=== PATIENT | male | born 1960 | race Caucasian/White ===

== ENCOUNTER 2019-01-25 17:58 | Observation (INO) | payer OTHER ==
[2019-01-25] MEDS ORDERED: Sodium Chloride 0.9% 1,000 ML IV ONE ×2 (18:17→19:20)
[2019-01-25] MEDS ORDERED: Ondansetron 4 MG/2 ML SDV IVPUSH ONE (18:17)
[2019-01-25] MEDS ORDERED: Morphine 2 MG/ML Syringe IVPUSH ONE (18:17)
[2019-01-25] MEDS ORDERED: Ketorolac 30 MG/ML SDV IVPUSH ONE (18:17)
[2019-01-25] MEDS ORDERED: Sodium Chloride 0.9% 10 ML Syringe FLUSH PRN (18:17)
[2019-01-25] MEDS ORDERED: Sodium Chloride 0.9% 2.5 ML Syringe FLUSH PRN (18:17)
[2019-01-25] MEDS ORDERED: Pantoprazole 40 MG Vial IVPUSH ONE (18:23)
--- NOTE | 2019-01-25 18:23 | EDM.PDOC ---
ED HPI GENERAL MEDICAL PROBLEM - General Chief Complaint: Abdominal Pain Stated Complaint: WEAKNESS Time Seen by Provider: 01/25/19 18:04 - History of Present Illness INITIAL COMMENTS - FREE TEXT/NARRATIVE: HISTORY AND PHYSICAL: History of present illness: The patient is a 50-year-old male with no significant abdominal surgical history no GI history ( please keep below addendum note for clarification and change of information that was not shared with me during the initial history of present illness) who presents with complaints of right upper quadrant pain that started yesterday and has been constant but intensified today and nausea and vomiting today which was mostly the food that he ate and bilious not black or bloody. He says he vomited about 4 times and the pain has been intensifying. He said he felt hot but did not take his temperature and he has no chest pain or shortness of breath. He has no flank pain no urinary complaints. The patient did not try any [id number] meds for the pain or the nausea and vomiting. He says that he did not have a bowel movement today but he did have one yesterday that was normal and not diarrhea black or bloody. He has no history of food intolerance no history of heartburn or acid reflux. He called the police who then called the ambulance because he was so low energy and needed transportation for care Review of systems: As per history of present illness and below otherwise all systems reviewed and negative. Past medical history: As per history of present illness and as reviewed below otherwise noncontributory. Surgical history: As per history of present illness and as reviewed below otherwise noncontributory. Social history: No reported history of drug or alcohol abuse. Family history: As per history of present illness and as reviewed below otherwise noncontributory. Physical exam: General: Well-developed well-nourished man who is nontoxic and vital signs are noted by me. He prefers to keep his eyes closed but opens his eyes and answers questions but is very soft spoken. HEENT: Atraumatic, normocephalic, pupils reactive, negative for conjunctival pallor or scleral icterus, mucous membranes moist, throat clear, neck supple, nontender, trachea midline. Lungs: Clear to auscultation, breath sounds equal bilaterally, chest nontender. Heart: S1S2, regular, negative for clicks, rubs, or JVD. No overt murmurs Abdomen: Soft, nondistended, bowel sounds are hypoactive and there is moderate tenderness on palpation in the right upper quadrant and epigastrium and right lower quadrant pain and no left-sided pain. There is no rebound or guarding. Negative for masses or hepatosplenomegaly. Negative for costovertebral tenderness. See below addendum exam Pelvis: Stable nontender. Genitourinary: Deferred. Rectal: Deferred. Extremities: Atraumatic, negative for cords or calf pain. Neurovascular unremarkable. Neuro: Awake, alert, oriented. Cranial nerves II through XII unremarkable. Cerebellum unremarkable. Motor and sensory unremarkable throughout. Exam nonfocal. Diagnostics: CBC CMP amylase lipase UA H. pylori CT scan of the abdomen and pelvis Therapeutics: IV fluids Zofran Toradol morphine Protonix Patient is feeling much improved and after receiving the CAT scan results I discussed with him again whether or not he has had any abdominal surgical history. 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 He does have a scar on his abdomen in the periumbilical area without any tenderness and his overall pain and exam is much improved. He is aware of the testing results and the need for admission and he has only received the first liter of fluids and is now on the second. He has not given me a urine sample yet. He is aware he is very dehydrated 2024: Case was discussed with Dr. Blackmon who will come and see the patient wants him to be admitted to the hospitalist. He will do a formal consult. Dr. Guzman is here in the ED currently and is aware of this case and accepts him for observation admission Impression: Small bowel obstruction Definitive disposition and diagnosis as appropriate pending reevaluation and review of above. Right Upper Abdomen Pain Score (Numeric/FACES): 8 - Related Data Allergies Allergy/AdvReac Type Severity Reaction Status Date / Time ampicillin Allergy Other Verified 01/25/19 18:03 Home Meds: Home Meds Mirtazapine 45 mg PO DAILY 01/25/19 [History] Venlafaxine [Effexor XR] 375 mg PO BEDTIME 01/25/19 [History] Past Medical History - Past Health History Medical/Surgical History: Denies Medical/Surgical History Genitourinary History: Reports: Other (See Below) Other Genitourinary History: bladder surgery Psychiatric History: Reports: Depression - Past Surgical History GI Surgical History: Reports: Other (See Below) Other GI Surgeries/Procedures: abdomen surgery at [facility] History: Reports: Arthroscopic Knee, Other (See Below) Other Musculoskeletal Surgeries/Procedures:: ankle surgery Social & Family History - Family History Family Medical History: Noncontributory - Tobacco Use Smoking Status *Q: Never Smoker - Recreational Drug Use Recreational Drug Use: No ED ROS GENERAL - Review of Systems Review Of Systems: ROS reveals no pertinent complaints other than HPI. ED EXAM, GENERAL - Physical Exam Exam: See Below (See dictation) Course - Vital Signs Last Recorded V/S: Last Vital Signs Temp 36.1 C 01/25/19 18:00 Pulse 88 01/25/19 19:13 Resp 18 01/25/19 19:13 BP 134/86 01/25/19 19:13 Pulse Ox 96 01/25/19 19:13 - Orders/Labs/Meds Orders: Active Orders 24 hr Category Date Time Status Patient Status [ADT] Stat ADT 01/25/19 20:26 Ordered Notify Provider Consults [RC] ASDIRECTED Care 01/25/19 20:27 Ordered Consult to Physician [CONS] Stat Cons 01/25/19 20:27 Ordered UA RFX LEXIS AND CULT IF INDIC [URIN] Stat Lab 01/25/19 18:17 Ordered Sodium Chloride 0.9% [Saline Flush] Med 01/25/19 18:17 Active 10 ml FLUSH ASDIRECTED PRN Sodium Chloride 0.9% [Saline Flush] Med 01/25/19 18:17 Active 2.5 ml FLUSH ASDIRECTED PRN Saline Lock Insert [OM.PC] Stat Oth 01/25/19 18:17 Ordered Medication Orders Sodium Chloride (Saline Flush) 10 ml FLUSH ASDIRECTED PRN PRN Reason: Keep Vein Open Last Admin: 01/25/19 18:35 Dose: 10 ml Sodium Chloride (Saline Flush) 2.5 ml FLUSH ASDIRECTED PRN PRN Reason: Keep Vein Open Last Admin: 01/25/19 18:35 Dose: 2.5 ml Labs: Laboratory Tests 01/25/19 01/25/19 01/25/19 Range/Units 18:37 18:37 18:37 WBC 17.16 H (4.0-11.0) K/uL RBC 5.35 (4.50-5.90) M/uL Hgb 18.0 H (13.0-17.0) g/dL Hct 51.0 H (38.0-50.0) % MCV 95.3 (80.0-98.0) fL MCH 33.6 H (27.0-32.0) pg MCHC 35.3 (31.0-37.0) g/dL RDW Std Deviation 52.4 (28.0-62.0) fl RDW Coeff of Leonid 15 (11.0-15.0) % Plt Count 220 (150-400) K/uL MPV 10.40 (7.40-12.00) fL Neut % (Auto) 90.8 H (48.0-80.0) % Lymph % (Auto) 4.5 L (16.0-40.0) % [place] % (Auto) 4.5 (0.0-15.0) % Eos % (Auto) 0.1 (0.0-7.0) % Baso % (Auto) 0.1 (0.0-1.5) % Neut # (Auto) 15.6 H (1.4-5.7) K/uL Lymph # (Auto) 0.8 (0.6-2.4) K/uL [place] # (Auto) 0.8 (0.0-0.8) K/uL Eos # (Auto) 0.0 (0.0-0.7) K/uL Baso # (Auto) 0.0 (0.0-0.1) K/uL Nucleated RBC % 0.0 /100WBC Nucleated RBCs # 0 K/uL Sodium 139 (136-148) mmol/L Potassium 4.5 (3.5-5.1) mmol/L Chloride 101 (98-107) mmol/L Carbon Dioxide 27.9 (21.0-32.0) mmol/L BUN 21 H (7.0-18.0) mg/dL Creatinine 1.0 (0.8-1.3) mg/dL Est Cr Clr Drug Dosing 85.76 mL/min Estimated GFR (MDRD) > 60.0 ml/min Glucose 151 H (74-106) mg/dL Calcium 10.0 (8.5-10.1) mg/dL Total Bilirubin 0.9 (0.2-1.0) mg/dL AST 29 (15-37) IU/L ALT 48 (14-63) IU/L Alkaline Phosphatase 75 (46-116) U/L Total Protein 8.5 H (6.4-8.2) g/dL Albumin 4.2 (3.4-5.0) g/dL Globulin 4.3 H (2.6-4.0) g/dL Albumin/Globulin Ratio 1.0 (0.9-1.6) Amylase 36 (25-115) U/L Lipase 132 (73-393) U/L H. pylori IgG Antibody NEGATIVE (NEG) Meds: Medications Generic Name Dose Route Start Last Admin Trade Name Freq PRN Reason Stop Dose Admin Sodium Chloride 10 ml 01/25/19 18:17 01/25/19 18:35 Saline Flush FLUSH 10 ml ASDIRECTED PRN Administration Keep Vein Open Sodium Chloride 2.5 ml 01/25/19 18:17 01/25/19 18:35 Saline Flush FLUSH 2.5 ml ASDIRECTED PRN Administration Keep Vein Open Discontinued Medications Generic Name Dose Route Start Last Admin Trade Name Freq PRN Reason Stop Dose Admin Sodium Chloride 1,000 mls @ 999 mls/hr 01/25/19 18:17 01/25/19 18:35 Normal Saline IV 01/25/19 19:17 999 mls/hr STAT ONE Administration Sodium Chloride 1,000 mls @ 999 mls/hr 01/25/19 19:20 Normal Saline IV 01/25/19 20:20 STAT ONE Iopamidol 100 ml 01/25/19 19:42 01/25/19 19:43 Isovue Multipack-370 (76%) IVPUSH 01/25/19 19:43 100 ml ONETIME STA Administration Ketorolac Tromethamine 30 mg 01/25/19 18:17 01/25/19 18:34 Toradol IVPUSH 01/25/19 18:18 30 mg ONETIME ONE Administration Morphine Sulfate 2 mg 01/25/19 18:17 01/25/19 18:35 Morphine IVPUSH 01/25/19 18:18 2 mg ONETIME ONE Administration Ondansetron HCl 4 mg 01/25/19 18:17 01/25/19 18:36 Zofran IVPUSH 01/25/19 18:18 4 mg ONETIME ONE Administration Pantoprazole Sodium 80 mg 01/25/19 18:23 01/25/19 18:34 Protonix Iv IVPUSH 01/25/19 18:24 80 mg .BOLUS ONE Administration Departure - Departure Time of Disposition: 20:29 Disposition: Refer to Observation Condition: Good Clinical Impression: Small bowel obstruction due to adhesions - Discharge Information Forms: ED Department Discharge - My Orders Last 24 Hours: My Active Orders 01/25/19 18:17 UA RFX LEXIS AND CULT IF INDIC [URIN] Stat Sodium Chloride 0.9% [Saline Flush] 10 ml FLUSH ASDIRECTED PRN Sodium Chloride 0.9% [Saline Flush] 2.5 ml FLUSH ASDIRECTED PRN Saline Lock Insert [OM.PC] Stat 01/25/19 20:26 Patient Status [ADT] Stat 01/25/19 20:27 Notify Provider Consults [RC] ASDIRECTED Consult to Physician [CONS] Stat - Assessment/Plan Last 24 Hours: My Active Orders 01/25/19 18:17 UA RFX LEXIS AND CULT IF INDIC [URIN] Stat Sodium Chloride 0.9% [Saline Flush] 10 ml FLUSH ASDIRECTED PRN Sodium Chloride 0.9% [Saline Flush] 2.5 ml FLUSH ASDIRECTED PRN Saline Lock Insert [OM.PC] Stat 01/25/19 20:26 Patient Status [ADT] Stat 01/25/19 20:27 Notify Provider Consults [RC] ASDIRECTED Consult to Physician [CONS] Stat
[2019-01-25 19:07] LABS: CHLORIDE,CL 101 mmol/L (98-107); SODIUM,NA 139 mmol/L (136-148)
[2019-01-25] MEDS ORDERED: Iopamidol 755 MG/ML 500 ML Multipack Bottle IVPUSH STA (19:42)
--- NOTE | 2019-01-25 20:20 | CT ---
INDICATION: 58 year-old male. Right upper quadrant abdominal pain for 1-1/2 days. TECHNIQUE: Contrast-enhanced abdominal pelvic CT. 100 cc nonionic Isovue-370 administered. COMPARISON: None. FINDINGS: The stomach is [id number] distended with fluid as well as fluid in the distal esophagus with mild esophageal distention. There are multiple moderately distended air and fluid-filled small bowel loops throughout the abdomen with a transition point in the right lower quadrant. This may be related to an adhesive band. There is no evidence for appendicitis or diverticulitis. There is no free air or abscess. Scattered gas and stool throughout portions of the colon and rectum. The liver, spleen, pancreas, gallbladder, adrenal glands, and both kidneys are within normal limits although there is a tiny cortical cyst on the right. Accessory splenule left upper quadrant. Normal caliber abdominal aorta and iliac arteries. Normal inferior vena cava. Urinary bladder, prostate gland, and seminal vesicles are within normal limits. Minor curvilinear fibrosis or atelectasis at the lung bases. Atelectasis is favored. Coronary artery calcifications and/or coronary artery stents. The included skeleton is negative for acute fractures. IMPRESSION: 1. Partial small bowel obstruction with a transition point likely in the right lower quadrant. This may be related to an adhesive band. No mass or internal hernia identified and there is no evidence for appendicitis or diverticulitis. 2. No abscess or free air. Please note that all CT scans at this facility use dose modulation, iterative reconstruction, and/or weight-based dosing when appropriate to reduce radiation dose to as low as reasonably achievable. Dictated by Raji Laura MD @ Jan 25 2019 8:08PM Signed by Dr. Raji Laura @ Jan 25 2019 8:18PM
--- NOTE | 2019-01-25 21:08 | PCM.HP ---
H&P History of Present Illness - General Date of Service: 01/25/19 Admit Problem/Dx: Admission Diagnosis/Problem Admission Diagnosis/Problem Intestinal obstruction Source of Information: Patient History Limitations: Reports: No Limitations - History of Present Illness Initial Comments - Free Text/Narative: The patient is a 58-year-old gentleman with presented to the emergency department with a chief complaint of abdominal pain. The patient does have a history of significant abdominal surgery which had included surgery for intestinal exposure as a child. Patient also has a history of several small bowel obstructions previously. Patient says that he has not been able to pass any flatus. The patient also has some history of nausea and vomiting but none now. The patient has had abdominal pain in the right lower quadrant. He has had this before in the sitting position with small bowel obstruction. The pain does not radiate. The patient has had no specific aggravating or relieving factors other than medication helps pain. The patient has denied any fever or chills. Onset of Symptoms: Reports: Sudden Duration of Symptoms: Reports: Hour(s):, Getting Worse Location: Reports: Abdomen Quality: Reports: Pressure, Same as Previous Episode, Stabbing Improves with: Reports: Rest Worsens with: Reports: Eating Associated Symptoms: Reports: Nausea/Vomiting Right Upper Abdomen Pain Score (Numeric/FACES): 0 - Related Data Allergies/Adverse Reactions: Allergies Allergy/AdvReac Type Severity Reaction Status Date / Time ampicillin Allergy Other Verified 01/25/19 18:03 Home Medications: Home Meds Mirtazapine 45 mg PO DAILY 01/25/19 [History] Venlafaxine [Effexor XR] 375 mg PO BEDTIME 01/25/19 [History] Past Medical History - Past Health History Medical/Surgical History: Denies Medical/Surgical History HEENT History: Reports: None Cardiovascular History: Reports: None Respiratory History: Reports: None Gastrointestinal History: Reports: Other (See Below) (Surgery abdominal wall as ) Genitourinary History: Reports: Other (See Below) Other Genitourinary History: bladder surgery Musculoskeletal History: Reports: None Neurological History: Reports: None Psychiatric History: Reports: Depression Endocrine/Metabolic History: Reports: None Hematologic History: Reports: None Immunologic History: Reports: None Oncologic (Cancer) History: Reports: None Dermatologic History: Reports: None - Past Surgical History GI Surgical History: Reports: Other (See Below) Other GI Surgeries/Procedures: abdomen surgery at [facility] History: Reports: Arthroscopic Knee, Other (See Below) Other Musculoskeletal Surgeries/Procedures:: ankle surgery Social & Family History - Family History Family Medical History: Noncontributory - Tobacco Use Smoking Status *Q: Never Smoker - Alcohol Use Alcohol Use History: No - Recreational Drug Use Recreational Drug Use: No - Living Situation & Occupation Living situation: Reports: , with Spouse Occupation: Employed H&P Review of Systems - Review of Systems: Review Of Systems: See Below General: Reports: No Symptoms HEENT: Reports: No Symptoms Pulmonary: Reports: No Symptoms Cardiovascular: Reports: No Symptoms Gastrointestinal: Reports: Abdominal Pain, Nausea, Vomiting. Denies: Distension , Flatus Genitourinary: Reports: No Symptoms Musculoskeletal: Reports: No Symptoms Skin: Reports: No Symptoms Psychiatric: Reports: No Symptoms Neurological: Reports: No Symptoms Hematologic/Lymphatic: Reports: No Symptoms Immunologic: Reports: No Symptoms Exam - Exam Exam: See Below - Vital Signs Vital Signs: Last Vital Signs Temp 36.5 C 01/25/19 20:40 Pulse 95 01/25/19 20:40 Resp 20 01/25/19 20:40 BP 140/83 01/25/19 20:40 Pulse Ox 97 01/25/19 20:40 Weight: 95.254 kg - Exam General: Alert, Oriented, Cooperative, Mild Distress HEENT: Conjunctiva Clear, EACs Clear, EOMI, Hearing Intact, Mucosa Moist & [place] , PERRLA Neck: Supple, Trachea Midline, 2 Lungs: Clear to Auscultation, Normal Respiratory Effort Cardiovascular: Regular Rate, Regular Rhythm GI/Abdominal Exam: Soft, No Organomegaly, No Distention, Tender. No: Normal Bowel Sounds (Tinkling bowel sounds right lower quadrant), Guarding, Rigid, Rebound (Male) Exam: Deferred Rectal (Males) Exam: Deferred Back Exam: Normal Inspection, Full Range of Motion, NT Extremities: Normal Inspection, Normal Range of Motion, No Pedal Edema Skin: Warm, Dry, Intact Neurological: Cranial Nerves Intact, Normal Gait Neuro Extensive - Mental Status: Alert, Oriented x3 Neuro Extensive - Motor, Sensory, Reflexes: CN II-XII Intact Psychiatric: Alert, Normal Affect, Normal Mood - Patient Data Lab Results Last 24 hrs: Laboratory Results - last 24 hr 01/25/19 01/25/1901/25/19 Range/Units 18:37 18:37 18:37 WBC 17.16 H (4.0-11.0) K/uL RBC 5.35 (4.50-5.90) M/uL Hgb 18.0 H (13.0-17.0) g/dL Hct 51.0 H (38.0-50.0) % MCV 95.3 (80.0-98.0) fL MCH 33.6 H (27.0-32.0) pg MCHC 35.3 (31.0-37.0) g/dL RDW Std Deviation 52.4 (28.0-62.0) fl RDW Coeff of Leonid 15 (11.0-15.0) % Plt Count 220 (150-400) K/uL MPV 10.40 (7.40-12.00) fL Neut % (Auto) 90.8 H (48.0-80.0) % Lymph % (Auto) 4.5 L (16.0-40.0) % [place] % (Auto) 4.5 (0.0-15.0) % Eos % (Auto) 0.1 (0.0-7.0) % Baso % (Auto) 0.1 (0.0-1.5) % Neut # (Auto) 15.6 H (1.4-5.7) K/uL Lymph # (Auto) 0.8 (0.6-2.4) K/uL [place] # (Auto) 0.8 (0.0-0.8) K/uL Eos # (Auto) 0.0 (0.0-0.7) K/uL Baso # (Auto) 0.0 (0.0-0.1) K/uL Nucleated RBC % 0.0 /100WBC Nucleated RBCs # 0 K/uL Sodium 139 (136-148) mmol/L Potassium 4.5 (3.5-5.1) mmol/L Chloride 101 (98-107) mmol/L Carbon Dioxide 27.9 (21.0-32.0) mmol/L BUN 21 H (7.0-18.0) mg/dL Creatinine 1.0 (0.8-1.3) mg/dL Est Cr Clr Drug Dosing 85.76 mL/min Estimated GFR (MDRD) > 60.0 ml/min Glucose 151 H (74-106) mg/dL Calcium 10.0 (8.5-10.1) mg/dL Total Bilirubin 0.9 (0.2-1.0) mg/dL AST 29 (15-37) IU/L ALT 48 (14-63) IU/L Alkaline Phosphatase 75 (46-116) U/L Total Protein 8.5 H (6.4-8.2) g/dL Albumin 4.2 (3.4-5.0) g/dL Globulin 4.3 H (2.6-4.0) g/dL Albumin/Globulin Ratio 1.0 (0.9-1.6) Amylase 36 (25-115) U/L Lipase 132 (73-393) U/L H. pylori IgG Antibody NEGATIVE (NEG) Result Diagrams: 01/25/19 18:37 01/25/19 18:37 - Problem List (1) Small bowel obstruction due to adhesions SNOMED Code(s): 230528459 ICD Code: K56.50 - INTESTNL ADHESIONS, UNSP TO PARTIAL VERSUS COMPLETE OBST Status: Acute Priority: High Current Visit: Yes (2) Depression SNOMED Code(s): 70108894 ICD Code: F32.9 - MAJOR DEPRESSIVE DISORDER, SINGLE EPISODE, UNSPECIFIED Status: Acute Priority: High Current Visit: Yes Qualifiers: Depression Type: dysthymia Qualified Code(s): F34.1 - Dysthymic disorder (3) Abdominal pain SNOMED Code(s): 19850687 ICD Code: R10.9 - UNSPECIFIED ABDOMINAL PAIN Status: Acute Priority: High Current Visit: Yes Qualifiers: Abdominal location: right lower quadrant Qualified Code(s): R10.31 - Right lower quadrant pain Problem List Initiated/Reviewed/Updated: Yes Orders Last 24hrs: Active Orders 24 hr Category Date Time Status Patient Status [ADT] Stat ADT 01/25/19 20:26 Active Notify Provider Consults [RC] ASDIRECTED Care 01/25/19 20:27 Active Consult to Physician [CONS] Stat Cons 01/25/19 20:27 Active UA RFX LEXIS AND CULT IF INDIC [URIN] Stat Lab 01/25/19 18:17 Ordered Sodium Chloride 0.9% [Saline Flush] Med 01/25/19 18:17 Active 10 ml FLUSH ASDIRECTED PRN Sodium Chloride 0.9% [Saline Flush] Med 01/25/19 18:17 Active 2.5 ml FLUSH ASDIRECTED PRN Saline Lock Insert [OM.PC] Stat Oth 01/25/19 18:17 Ordered Medication Orders Sodium Chloride (Saline Flush) 10 ml FLUSH ASDIRECTED PRN PRN Reason: Keep Vein Open Last Admin: 01/25/19 18:35 Dose: 10 ml Sodium Chloride (Saline Flush) 2.5 ml FLUSH ASDIRECTED PRN PRN Reason: Keep Vein Open Last Admin: 01/25/19 18:35 Dose: 2.5 ml Assessment/Plan Comment:: The patient is a 58-year-old gentleman who will be admitted to medical surgery floor. Dr. Blackmon has been consulted to the emergency department. The patient will be kept nothing by mouth. I've also ordered IV normal saline at 125 mL per hour. The patient can take his home medications with small sips of water for his depression. I've also ordered pain medication with narcotics consisting of morphine 2 mg IV every 2 hours as needed for severe pain. He can also have Toradol 30 mg IV for moderate pain. I stated to the patient that the treatment for this is bowel rest, nothing by mouth, IV fluids and pain control. Patient has had similar bowel obstructions before and he is aware of the treatment. We' ll discuss the case with surgeon. I've also ordered repeat laboratory studies for the morning. In case the surgery the patient will have DVT prophylaxis with use of heparin.
[2019-01-25] MEDS ORDERED: Ketorolac 30 MG/ML SDV IV PRN (21:09)
[2019-01-25] MEDS ORDERED: Morphine 2 MG/ML Syringe IVPUSH PRN (21:09)
[2019-01-25] MEDS ORDERED: Ondansetron 4 MG/2 ML SDV IVPUSH PRN (21:09)
--- NOTE | 2019-01-25 21:43 | PCM.CONS ---
H&P History of Present Illness - General Date of Service: 01/25/19 Admit Problem/Dx: Admission Diagnosis/Problem Admission Diagnosis/Problem Intestinal obstruction Source of Information: Patient History Limitations: Reports: No Limitations - History of Present Illness Initial Comments - Free Text/Narative: Patient is a 58-year-old gentleman with a history of recurring small bowel obstructions. He says he gets these about every 2 years. This most recent episode started 24-36 hours ago, when he developed abdominal pain. He was able to continue working yesterday, but not able to work today. Prior to coming here this evening he did have an episode of nausea and vomiting. He felt somewhat better after that. His last bowel movement was yesterday. He has not passed any gas today. 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 Looking at his CT scan majority of his small bowel is on the right side of his abdomen. He may have had a malrotation as well. He states he gets a partial small bowel obstruction about every other year. This seems to be associated with stress. Duration of Symptoms: Reports: Day(s):, Chronic, Colic Location: Reports: Abdomen Quality: Reports: Same as Previous Episode Severity: Moderate Improves with: Reports: Rest Worsens with: Reports: None Context: Reports: Sick Contact Associated Symptoms: Reports: Loss of Appetite, Nausea/Vomiting. Denies: Diaphoresis, Fever/Chills, Malaise Right Upper Abdomen Pain Score (Numeric/FACES): 0 - Related Data Allergies/Adverse Reactions: Allergies Allergy/AdvReac Type Severity Reaction Status Date / Time ampicillin Allergy Other Verified 01/25/19 18:03 Home Medications: Home Meds Mirtazapine 45 mg PO DAILY 01/25/19 [History] Venlafaxine [Effexor XR] 375 mg PO BEDTIME 01/25/19 [History] Past Medical History - Past Health History Medical/Surgical History: Denies Medical/Surgical History HEENT History: Reports: None Cardiovascular History: Reports: None Respiratory History: Reports: None Gastrointestinal History: Reports: Other (See Below) (Surgery abdominal wall as infant) Genitourinary History: Reports: Other (See Below) Other Genitourinary History: bladder surgery Musculoskeletal History: Reports: None Neurological History: Reports: None Psychiatric History: Reports: Depression Endocrine/Metabolic History: Reports: None Hematologic History: Reports: None Immunologic History: Reports: None Oncologic (Cancer) History: Reports: None Dermatologic History: Reports: None - Past Surgical History GI Surgical History: Reports: Other (See Below) Other GI Surgeries/Procedures: abdomen surgery at . Gastroschisis repair Male Surgical History: Reports: Other (See Below) Other Male Surgeries/Procedures: urethral valve surgery Musculoskeletal Surgical History: Reports: Arthroscopic Knee, Other (See Below) Other Musculoskeletal Surgeries/Procedures:: ankle surgery Social & Family History - Family History Family Medical History: Noncontributory - Tobacco Use Smoking Status *Q: Never Smoker - Recreational Drug Use Recreational Drug Use: No - Living Situation & Occupation Living situation: Reports: , with Spouse Occupation: Employed H&P Review of Systems - Review of Systems: Review Of Systems: See Below General: Reports: Decreased Appetite. Denies: Fever, Chills, Malaise, Weakness , Fatigue, Weight Loss HEENT: Reports: No Symptoms Pulmonary: Denies: Shortness of Breath, Wheezing, Pleuritic Chest Pain Cardiovascular: Denies: Chest Pain, Palpitations, Dyspnea on Exertion, Lightheadedness, Syncope Gastrointestinal: Reports: Abdominal Pain, Anorexia, Decreased Appetite, Distension, Nausea, Vomiting. Denies: Black Stool, Bloody Stool, Constipation, Diarrhea, Flatus, Melena, Stool Incontinence Genitourinary: Denies: Dysuria, Frequency, Burning, Pain Musculoskeletal: Reports: No Symptoms Skin: Denies: Cyanosis, Jaundice Psychiatric: Reports: Depression. Denies: Confusion, Mood Lability, Anxiety Neurological: Denies: Confusion, Dizziness Hematologic/Lymphatic: Reports: No Symptoms Immunologic: Reports: No Symptoms Exam - Exam Exam: See Below - Vital Signs Vital Signs: Last Vital Signs Temp 98.5 F 01/25/19 21:00 Pulse 101 H 01/25/19 21:00 Resp 16 01/25/19 21:00 BP 171/100 H 01/25/19 21:00 Pulse Ox 95 01/25/19 21:00 Weight: 210 lb - Exam Quality Assessment: No: Supplemental Oxygen, Central Line/PICC, Urinary Catheter General: Alert, Oriented, Cooperative, Mild Distress HEENT: Conjunctiva Clear, EACs Clear, Nares Patent, Pupils Equal, Pupils Reactive. No: Scleral Icterus Neck: Supple, Trachea Midline, +2 Carotid Pulse wo Bruit Lungs: Clear to Auscultation, Normal Respiratory Effort Cardiovascular: Regular Rate, Regular Rhythm, Normal S1, Normal S2. No: Tachycardia, Systolic Murmur GI/Abdominal Exam: Soft, No Distention, No Mass, Tender (along right side of abdomen), Abnormal Bowel Sounds (hypoactive to my exam. No BS on left side of abdomen.), Other (Incision around the umbilicus is dimpled and puckered but well healed.). No: Guarding, Rigid, Rebound (Male) Exam: No Hernia, Normal Inspection Rectal (Males) Exam: Deferred Back Exam: Normal Inspection Extremities: Normal Inspection, Normal Range of Motion Peripheral Pulses: 4+: Posterior Tibial (L), Posterior Tibial (R), Dorsalis Pedis (L), Dorsalis Pedis (R) Skin: Warm, Dry, Intact Neurological: Cranial Nerves Intact, Reflexes Equal Bilateral Psychiatric: Alert, Normal Affect, Normal Mood - Patient Data Lab Results Last 24 hrs: Laboratory Results - last 24 hr 01/25/19 01/25/19 01/25/19 Range/Units 18:37 18:37 18:37 WBC 17.16 H (4.0-11.0) K/uL RBC 5.35 (4.50-5.90) M/uL Hgb 18.0 H (13.0-17.0) g/dL Hct 51.0 H (38.0-50.0) % MCV 95.3 (80.0-98.0) fL MCH 33.6 H (27.0-32.0) pg MCHC 35.3 (31.0-37.0) g/dL RDW Std Deviation 52.4 (28.0-62.0) fl RDW Coeff of Leonid 15 (11.0-15.0) % Plt Count 220 (150-400) K/uL MPV 10.40 (7.40-12.00) fL Neut % (Auto) 90.8 H (48.0-80.0) % Lymph % (Auto) 4.5 L (16.0-40.0) % [place] % (Auto) 4.5 (0.0-15.0) % Eos % (Auto) 0.1 (0.0-7.0) % Baso % (Auto) 0.1 (0.0-1.5) % Neut # (Auto) 15.6 H (1.4-5.7) K/uL Lymph # (Auto) 0.8 (0.6-2.4) K/uL [place] # (Auto) 0.8 (0.0-0.8) K/uL Eos # (Auto) 0.0 (0.0-0.7) K/uL Baso # (Auto) 0.0 (0.0-0.1) K/uL Nucleated RBC % 0.0 /100WBC Nucleated RBCs # 0 K/uL Sodium 139 (136-148) mmol/L Potassium 4.5 (3.5-5.1) mmol/L Chloride 101 (98-107) mmol/L Carbon Dioxide 27.9 (21.0-32.0) mmol/L BUN 21 H (7.0-18.0) mg/dL Creatinine 1.0 (0.8-1.3) mg/dL Est Cr Clr Drug Dosing 85.76 mL/min Estimated GFR (MDRD) > 60.0 ml/min Glucose 151 H (74-106) mg/dL Calcium 10.0 (8.5-10.1) mg/dL Total Bilirubin 0.9 (0.2-1.0) mg/dL AST 29 (15-37) IU/L ALT 48 (14-63) IU/L Alkaline Phosphatase 75 (46-116) U/L Total Protein 8.5 H (6.4-8.2) g/dL Albumin 4.2 (3.4-5.0) g/dL Globulin 4.3 H (2.6-4.0) g/dL Albumin/Globulin Ratio 1.0 (0.9-1.6) Amylase 36 (25-115) U/L Lipase 132 (73-393) U/L H. pylori IgG Antibody NEGATIVE (NEG) Result Diagrams: 01/25/19 18:37 01/25/19 18:37 Imaging Impressions Last 24 hrs: CT scan and report have personally been reviewed. There are indeed collapsed loops in the right lower quadrant with dilated bowel superiorly. The majority of the small bowel is on the right side of the abdomen. Consult PN Assessment/Plan (1) Abdominal pain SNOMED Code(s): 17192033 Code(s): R10.9 - UNSPECIFIED ABDOMINAL PAIN Priority: Medium Current Visit: Yes Qualifiers: Abdominal location: right lower quadrant Qualified Code(s): R10.31 - Right lower quadrant pain (2) Depression SNOMED Code(s): 39574923 Code(s): F32.9 - MAJOR DEPRESSIVE DISORDER, SINGLE EPISODE, UNSPECIFIED Priority: High Current Visit: Yes Qualifiers: Depression Type: dysthymia Qualified Code(s): F34.1 - Dysthymic disorder (3) Small bowel obstruction due to adhesions SNOMED Code(s): 516725425 Code(s): K56.50 - INTESTNL ADHESIONS, UNSP TO PARTIAL VERSUS COMPLETE OBST Priority: High Current Visit: Yes Problem List Initiated/Reviewed/Updated: Yes Plan: Keep NPO with bowel rest. Up ad merissa. Repeat labs and 2view abdominal films in am.
[2019-01-25] MEDS: Heparin Sodium 5,000 Units/ML Vial SUBCUT SCH (22:09)
[2019-01-25] MEDS: Sodium Chloride 0.9% 1,000 ML IV SCH (22:37)
[2019-01-25] MEDS: Mirtazapine 15 MG Tab PO SCH (23:09)
[2019-01-26] MEDS: HYDROmorphone 2 MG/ML Syringe IVPUSH PRN ×4 (00:01→08:24)
[2019-01-26] MEDS: Sodium Chloride 0.9% 1,000 ML IV SCH ×3 (04:11→19:51)
[2019-01-26 06:16] LABS: CHLORIDE,CL 107 mmol/L (98-107); SODIUM,NA 142 mmol/L (136-148)
[2019-01-26] MEDS: Heparin Sodium 5,000 Units/ML Vial SUBCUT SCH ×3 (06:19→22:04)
--- NOTE | 2019-01-26 08:11 | PCM.PN ---
- General Info Date of Service: 01/26/19 Admission Dx/Problem (Free Text): Partial SBO Subjective Update: The patient is a 58-year-old gentleman who had been admitted yesterday secondary to small bowel obstruction. He has been evaluated by surgeon. Patient today still remains with abdominal pain that has been controlled with the use of Dilaudid. The patient has denied any bowel movement or flatus. He's had no nausea or vomiting. No fever or chills. Functional Status: Reports: Pain Controlled - Review of Systems General: Reports: No Symptoms HEENT: Reports: No Symptoms Pulmonary: Reports: No Symptoms Cardiovascular: Reports: No Symptoms Gastrointestinal: Reports: Abdominal Pain. Denies: Flatus, Nausea, Vomiting Genitourinary: Reports: No Symptoms Musculoskeletal: Reports: No Symptoms Skin: Reports: No Symptoms Neurological: Reports: No Symptoms Psychiatric: Reports: No Symptoms - Patient Data Vitals - Most Recent: Last Vital Signs Temp 36.6 C 01/26/19 07:54 Pulse 88 01/26/19 07:54 Resp 17 01/26/19 07:54 BP 119/74 01/26/19 07:54 Pulse Ox 93 L 01/26/19 07:54 Weight - Most Recent: 95.254 kg I&O - Last 24 Hours: Intake & Output 01/25/19 01/26/19 01/26/19 22:59 06:59 14:59 Intake Total 1125 Output Total 400 Balance 725 Lab Results Last 24 Hours: Laboratory Results - last 24 hr 01/25/19 01/25/19 01/25/19 Range/Units 18:37 18:37 18:37 WBC 17.16 H (4.0-11.0) K/uL RBC 5.35 (4.50-5.90) M/uL Hgb 18.0 H (13.0-17.0) g/dL Hct 51.0 H (38.0-50.0) % MCV 95.3 (80.0-98.0) fL MCH 33.6 H (27.0-32.0) pg MCHC 35.3 (31.0-37.0) g/dL RDW Std Deviation 52.4 (28.0-62.0) fl RDW Coeff of Leonid 15 (11.0-15.0) % Plt Count 220 (150-400) K/uL MPV 10.40 (7.40-12.00) fL Neut % (Auto) 90.8 H (48.0-80.0) % Lymph % (Auto) 4.5 L (16.0-40.0) % [place] % (Auto) 4.5 (0.0-15.0) % Eos % (Auto) 0.1 (0.0-7.0) % Baso % (Auto) 0.1 (0.0-1.5) % Neut # (Auto) 15.6 H (1.4-5.7) K/uL Lymph # (Auto) 0.8 (0.6-2.4) K/uL [place] # (Auto) 0.8 (0.0-0.8) K/uL Eos # (Auto) 0.0 (0.0-0.7) K/uL Baso # (Auto) 0.0 (0.0-0.1) K/uL Nucleated RBC % 0.0 /100WBC Nucleated RBCs # 0 K/uL Sodium 139 (136-148) mmol/L Potassium 4.5 (3.5-5.1) mmol/L Chloride 101 (98-107) mmol/L Carbon Dioxide 27.9 (21.0-32.0) mmol/L BUN 21 H (7.0-18.0) mg/dL Creatinine 1.0 (0.8-1.3) mg/dL Est Cr Clr Drug Dosing 85.76 mL/min Estimated GFR (MDRD) > 60.0 ml/min Glucose 151 H (74-106) mg/dL Calcium 10.0 (8.5-10.1) mg/dL Total Bilirubin 0.9 (0.2-1.0) mg/dL AST 29 (15-37) IU/L ALT 48 (14-63) IU/L Alkaline Phosphatase 75 (46-116) U/L Total Protein 8.5 H (6.4-8.2) g/dL Albumin 4.2 (3.4-5.0) g/dL Globulin 4.3 H (2.6-4.0) g/dL Albumin/Globulin Ratio 1.0 (0.9-1.6) Amylase 36 (25-115) U/L Lipase 132 (73-393) U/L Urine Color Urine Appearance Urine pH (5.0-8.0) Ur Specific [place] (1.001-1.035) Urine Protein (NEGATIVE) mg/dL Urine Glucose (UA) (NEGATIVE) mg/dL Urine Ketones (NEGATIVE) mg/dL Urine Occult Blood (NEGATIVE) Urine Nitrite (NEGATIVE) Urine Bilirubin (NEGATIVE) Urine Urobilinogen (<2.0) EU/dL Ur Leukocyte Esterase (NEGATIVE) H. pylori IgG Antibody NEGATIVE (NEG) 01/25/19 01/26/19 01/26/19 Range/Units 22:35 05:43 05:43 WBC 15.56 H (4.0-11.0) K/uL RBC 4.62 (4.50-5.90) M/uL Hgb 15.1 (13.0-17.0) g/dL Hct 44.9 (38.0-50.0) % MCV 97.2 (80.0-98.0) fL MCH 32.7 H (27.0-32.0) pg MCHC 33.6 (31.0-37.0) g/dL RDW Std Deviation 53.6 (28.0-62.0) fl RDW Coeff of Leonid 15 (11.0-15.0) % Plt Count 215 (150-400) K/uL MPV 10.20 (7.40-12.00) fL Neut % (Auto) 87.6 H (48.0-80.0) % Lymph % (Auto) 3.9 L (16.0-40.0) % [place] % (Auto) 8.3 (0.0-15.0) % Eos % (Auto) 0.1 (0.0-7.0) % Baso % (Auto) 0.1 (0.0-1.5) % Neut # (Auto) 13.7 H (1.4-5.7) K/uL Lymph # (Auto) 0.6 (0.6-2.4) K/uL [place] # (Auto) 1.3 H (0.0-0.8) K/uL Eos # (Auto) 0.0 (0.0-0.7) K/uL Baso # (Auto) 0.0 (0.0-0.1) K/uL Nucleated RBC % 0.0 /100WBC Nucleated RBCs # 0 K/uL Sodium 142 (136-148) mmol/L Potassium 4.1 (3.5-5.1) mmol/L Chloride 107 (98-107) mmol/L Carbon Dioxide 26.8 (21.0-32.0) mmol/L BUN 23 H (7.0-18.0) mg/dL Creatinine 1.0 (0.8-1.3) mg/dL Est Cr Clr Drug Dosing 85.76 mL/min Estimated GFR (MDRD) > 60.0 ml/min Glucose 128 H (74-106) mg/dL Calcium 8.1 L (8.5-10.1) mg/dL Total Bilirubin (0.2-1.0) mg/dL AST (15-37) IU/L ALT (14-63) IU/L Alkaline Phosphatase (46-116) U/L Total Protein (6.4-8.2) g/dL Albumin (3.4-5.0) g/dL Globulin (2.6-4.0) g/dL Albumin/Globulin Ratio (0.9-1.6) Amylase (25-115) U/L Lipase (73-393) U/L Urine Color YELLOW Urine Appearance CLEAR Urine pH 6.0 (5.0-8.0) Ur Specific [place] 1.010 (1.001-1.035) Urine Protein NEGATIVE (NEGATIVE) mg/dL Urine Glucose (UA) NEGATIVE (NEGATIVE) mg/dL Urine Ketones NEGATIVE (NEGATIVE) mg/dL Urine Occult Blood NEGATIVE (NEGATIVE) Urine Nitrite NEGATIVE (NEGATIVE) Urine Bilirubin NEGATIVE (NEGATIVE) Urine Urobilinogen 0.2 (<2.0) EU/dL Ur Leukocyte Esterase NEGATIVE (NEGATIVE) H. pylori IgG Antibody (NEG) Med Orders - Current: Current Medications Heparin Sodium (Porcine) (Heparin Sodium) 5,000 units SUBCUT Q8H [facility] Last Admin: 01/26/19 06:19 Dose: 5,000 units Hydromorphone HCl (Dilaudid) 2 mg IVPUSH Q2H PRN PRN Reason: Pain Last Admin: 01/26/19 06:16 Dose: 2 mg Sodium Chloride (Normal Saline) 1,000 mls @ 125 mls/hr IV ASDIRECTED [facility] Last Admin: 01/26/19 04:11 Dose: 125 mls/hr Ketorolac Tromethamine (Toradol) 30 mg IV Q6H PRN PRN Reason: Pain (moderate 4-6) Mirtazapine (Remeron) 45 mg PO BEDTIME [facility] Last Admin: 01/25/19 23:09 Dose: 45 mg Ondansetron HCl (Zofran) 4 mg IVPUSH Q6H PRN PRN Reason: Nausea/Vomiting Pantoprazole Sodium (Protonix Iv) 40 mg IV Q12HR [facility] Sodium Chloride (Saline Flush) 10 ml FLUSH ASDIRECTED PRN PRN Reason: Keep Vein Open Last Admin: 01/25/19 18:35 Dose: 10 ml Sodium Chloride (Saline Flush) 2.5 ml FLUSH ASDIRECTED PRN PRN Reason: Keep Vein Open Last Admin: 01/25/19 18:35 Dose: 2.5 ml Venlafaxine HCl (Effexor Xr) 375 mg PO DAILY [facility] Discontinued Medications Sodium Chloride (Normal Saline) 1,000 mls @ 999 mls/hr IV STAT ONE Stop: 01/25/19 19:17 Last Admin: 01/25/19 18:35 Dose: 999 mls/hr Sodium Chloride (Normal Saline) 1,000 mls @ 999 mls/hr IV STAT ONE Stop: 01/25/19 20:20 Last Admin: 01/25/19 20:31 Dose: 999 mls/hr Iopamidol (Isovue Multipack-370 (76%)) 100 ml IVPUSH ONETIME STA Stop: 01/25/19 19:43 Last Admin: 01/25/19 19:43 Dose: 100 ml Ketorolac Tromethamine (Toradol) 30 mg IVPUSH ONETIME ONE Stop: 01/25/19 18:18 Last Admin: 01/25/19 18:34 Dose: 30 mg Morphine Sulfate (Morphine) 2 mg IVPUSH ONETIME ONE Stop: 01/25/19 18:18 Last Admin: 01/25/19 18:35 Dose: 2 mg Morphine Sulfate (Morphine) 2 mg IVPUSH Q2H PRN PRN Reason: Pain (severe 7-10) Stop: 01/26/19 21:14 Last Admin: 01/25/19 22:09 Dose: 2 mg Non-Formulary Medication (Mirtazapine [Mirtazapine]) 45 mg PO DAILY [facility] Non-Formulary Medication (Venlafaxine) 375 mg PO BEDTIME [facility] Ondansetron HCl (Zofran) 4 mg IVPUSH ONETIME ONE Stop: 01/25/19 18:18 Last Admin: 01/25/19 18:36 Dose: 4 mg Pantoprazole Sodium (Protonix Iv) 80 mg IVPUSH .BOLUS ONE Stop: 01/25/19 18:24 Last Admin: 01/25/19 18:34 Dose: 80 mg - Exam Quality Assessment: No: Supplemental Oxygen General: Alert, Oriented, Cooperative, Mild Distress HEENT: Pupils Equal, Pupils Reactive, EOMI Neck: Supple, Trachea Midline Lungs: Clear to Auscultation, Normal Respiratory Effort Cardiovascular: Regular Rate, Regular Rhythm GI/Abdominal Exam: Soft, Tender (Right lower quadrant). No: Normal Bowel Sounds (Tinkling bowel sounds), Guarding, Rigid, Rebound (Male) Exam: Deferred Back Exam: Normal Inspection, Full Range of Motion Extremities: Normal Inspection, Normal Range of Motion, No Pedal Edema Skin: Warm, Dry, Intact Psy/Mental Status: Alert, Normal Affect, Normal Mood - Problem List & Annotations (1) Small bowel obstruction due to adhesions SNOMED Code(s): 286729325 Code(s): K56.50 - INTESTNL ADHESIONS, UNSP TO PARTIAL VERSUS COMPLETE OBST Status: Acute Priority: High Current Visit: Yes (2) Depression SNOMED Code(s): 83615091 Code(s): F32.9 - MAJOR DEPRESSIVE DISORDER, SINGLE EPISODE, UNSPECIFIED Status: Acute Priority: High Current Visit: Yes Qualifiers: Depression Type: dysthymia Qualified Code(s): F34.1 - Dysthymic disorder (3) Abdominal pain SNOMED Code(s): 15557685 Code(s): R10.9 - UNSPECIFIED ABDOMINAL PAIN Status: Acute Priority: Medium Current Visit: Yes Qualifiers: Abdominal location: right lower quadrant Qualified Code(s): R10.31 - Right lower quadrant pain - Problem List Review Problem List Initiated/Reviewed/Updated: Yes - My Orders Last 24 Hours: My Active Orders 01/25/19 21:09 Oxygen Therapy [RC] PRN Up With Assistance [RC] ASDIRECTED VTE/DVT Education [RC] PER UNIT ROUTINE Vital Signs [RC] Q4H Ketorolac [Toradol] 30 mg IV Q6H PRN Ondansetron [Zofran] 4 mg IVPUSH Q6H PRN Resuscitation Status Routine 01/25/19 21:15 Sodium Chloride 0.9% [Normal Saline] 1,000 ml IV ASDIRECTED 01/25/19 22:00 Heparin Sodium 5,000 units SUBCUT Q8H 01/25/19 23:00 Mirtazapine [Remeron] 45 mg PO BEDTIME 01/25/19 23:41 HYDROmorphone [Dilaudid] 2 mg IVPUSH Q2H PRN 01/26/19 09:00 Pantoprazole [ProTONIX IV] 40 mg IV Q12HR Venlafaxine [Effexor XR] 375 mg PO DAILY - Plan Plan:: The patient is a 58-year-old gentleman who was admitted secondary to small bowel obstruction. The patient had abdominal x-ray this morning which is still consistent with small bowel obstruction and air fluid levels in the small intestine. The patient did have poorly controlled pain with the use of morphine and he was transitioned to Dilaudid 0.5 mg every 2 hours as needed for severe pain. He is also currently on nothing by mouth diet except for small sips of water with medications. The patient does have a complicated abdominal history due to surgery as an infant. He also says that his last small bowel obstruction with approximate 5 years ago. I will follow with the surgeon but I am concerned that if the patient does require surgery he might need to have surgery at a tertiary care center. I have advised the patient of this. He'll be continued on DVT prophylaxis with the use of heparin. I have also ordered repeat laboratory testings for the morning. The patient has been encouraged to ambulate.
--- NOTE | 2019-01-26 08:16 | PCM.CONSN ---
- General Info Date of Service: 01/26/19 Admission Dx/Problem (Free Text): Partial SBO Functional Status: Reports: Pain Controlled, Ambulating, Urinating. Denies: Tolerating Diet (NPO), New Symptoms - Review of Systems General: Reports: Fever (tmax 99.4). Denies: Weakness, Fatigue, Malaise HEENT: Reports: No Symptoms Pulmonary: Denies: Shortness of Breath, Pleuritic Chest Pain Cardiovascular: Denies: Chest Pain, Palpitations Gastrointestinal: Reports: Abdominal Pain. Denies: Constipation, Decreased Appetite, Diarrhea, Difficulty Swallowing, Flatus, Nausea, Vomiting Genitourinary: Denies: Dysuria, Frequency Musculoskeletal: Denies: Neck Pain Skin: Denies: Cyanosis, Jaundice Neurological: Reports: No Symptoms Psychiatric: Reports: No Symptoms - Patient Data Vitals - Most Recent: Last Vital Signs Temp 97.9 F 01/26/19 07:54 Pulse 88 01/26/19 07:54 Resp 17 01/26/19 07:54 BP 119/74 01/26/19 07:54 Pulse Ox 93 L 01/26/19 07:54 Weight - Most Recent: 210 lb I&O - Last 24 Hours: Intake & Output 01/25/19 01/26/19 01/26/19 19:59 03:59 11:59 Intake Total 1125 Output Total 400 Balance 725 Lab Results Last 24 Hours: Laboratory Results - last 24 hr 01/25/19 01/25/19 01/25/19 Range/Units 18:37 18:37 18:37 WBC 17.16 H (4.0-11.0) K/uL RBC 5.35 (4.50-5.90) M/uL Hgb 18.0 H (13.0-17.0) g/dL Hct 51.0 H (38.0-50.0) % MCV 95.3 (80.0-98.0) fL MCH 33.6 H (27.0-32.0) pg MCHC 35.3 (31.0-37.0) g/dL RDW Std Deviation 52.4 (28.0-62.0) fl RDW Coeff of Leonid 15 (11.0-15.0) % Plt Count 220 (150-400) K/uL MPV 10.40 (7.40-12.00) fL Neut % (Auto) 90.8 H (48.0-80.0) % Lymph % (Auto) 4.5 L (16.0-40.0) % Becker % (Auto) 4.5 (0.0-15.0) % Eos % (Auto) 0.1 (0.0-7.0) % Baso % (Auto) 0.1 (0.0-1.5) % Neut # (Auto) 15.6 H (1.4-5.7) K/uL Lymph # (Auto) 0.8 (0.6-2.4) K/uL Becker # (Auto) 0.8 (0.0-0.8) K/uL Eos # (Auto) 0.0 (0.0-0.7) K/uL Baso # (Auto) 0.0 (0.0-0.1) K/uL Nucleated RBC % 0.0 /100WBC Nucleated RBCs # 0 K/uL Sodium 139 (136-148) mmol/L Potassium 4.5 (3.5-5.1) mmol/L Chloride 101 (98-107) mmol/L Carbon Dioxide 27.9 (21.0-32.0) mmol/L BUN 21 H (7.0-18.0) mg/dL Creatinine 1.0 (0.8-1.3) mg/dL Est Cr Clr Drug Dosing 85.76 mL/min Estimated GFR (MDRD) > 60.0 ml/min Glucose 151 H (74-106) mg/dL Calcium 10.0 (8.5-10.1) mg/dL Total Bilirubin 0.9 (0.2-1.0) mg/dL AST 29 (15-37) IU/L ALT 48 (14-63) IU/L Alkaline Phosphatase 75 (46-116) U/L Total Protein 8.5 H (6.4-8.2) g/dL Albumin 4.2 (3.4-5.0) g/dL Globulin 4.3 H (2.6-4.0) g/dL Albumin/Globulin Ratio 1.0 (0.9-1.6) Amylase 36 (25-115) U/L Lipase 132 (73-393) U/L Urine Color Urine Appearance Urine pH (5.0-8.0) Ur Specific [place] (1.001-1.035) Urine Protein (NEGATIVE) mg/dL Urine Glucose (UA) (NEGATIVE) mg/dL Urine Ketones (NEGATIVE) mg/dL Urine Occult Blood (NEGATIVE) Urine Nitrite (NEGATIVE) Urine Bilirubin (NEGATIVE) Urine Urobilinogen (<2.0) EU/dL Ur Leukocyte Esterase (NEGATIVE) H. pylori IgG Antibody NEGATIVE (NEG) 01/25/19 01/26/19 01/26/19 Range/Units 22:35 05:43 05:43 WBC 15.56 H (4.0-11.0) K/uL RBC 4.62 (4.50-5.90) M/uL Hgb 15.1 (13.0-17.0) g/dL Hct 44.9 (38.0-50.0) % MCV 97.2 (80.0-98.0) fL MCH 32.7 H (27.0-32.0) pg MCHC 33.6 (31.0-37.0) g/dL RDW Std Deviation 53.6 (28.0-62.0) fl RDW Coeff of Leonid 15 (11.0-15.0) % Plt Count 215 (150-400) K/uL MPV 10.20 (7.40-12.00) fL Neut % (Auto) 87.6 H (48.0-80.0) % Lymph % (Auto) 3.9 L (16.0-40.0) % Becker % (Auto) 8.3 (0.0-15.0) % Eos % (Auto) 0.1 (0.0-7.0) % Baso % (Auto) 0.1 (0.0-1.5) % Neut # (Auto) 13.7 H (1.4-5.7) K/uL Lymph # (Auto) 0.6 (0.6-2.4) K/uL Becker # (Auto) 1.3 H (0.0-0.8) K/uL Eos # (Auto) 0.0 (0.0-0.7) K/uL Baso # (Auto) 0.0 (0.0-0.1) K/uL Nucleated RBC % 0.0 /100WBC Nucleated RBCs # 0 K/uL Sodium 142 (136-148) mmol/L Potassium 4.1 (3.5-5.1) mmol/L Chloride 107 (98-107) mmol/L Carbon Dioxide 26.8 (21.0-32.0) mmol/L BUN 23 H (7.0-18.0) mg/dL Creatinine 1.0 (0.8-1.3) mg/dL Est Cr Clr Drug Dosing 85.76 mL/min Estimated GFR (MDRD) > 60.0 ml/min Glucose 128 H (74-106) mg/dL Calcium 8.1 L (8.5-10.1) mg/dL Total Bilirubin (0.2-1.0) mg/dL AST (15-37) IU/L ALT (14-63) IU/L Alkaline Phosphatase (46-116) U/L Total Protein (6.4-8.2) g/dL Albumin (3.4-5.0) g/dL Globulin (2.6-4.0) g/dL Albumin/Globulin Ratio (0.9-1.6) Amylase (25-115) U/L Lipase (73-393) U/L Urine Color YELLOW Urine Appearance CLEAR Urine pH 6.0 (5.0-8.0) Ur Specific [place] 1.010 (1.001-1.035) Urine Protein NEGATIVE (NEGATIVE) mg/dL Urine Glucose (UA) NEGATIVE (NEGATIVE) mg/dL Urine Ketones NEGATIVE (NEGATIVE) mg/dL Urine Occult Blood NEGATIVE (NEGATIVE) Urine Nitrite NEGATIVE (NEGATIVE) Urine Bilirubin NEGATIVE (NEGATIVE) Urine Urobilinogen 0.2 (<2.0) EU/dL Ur Leukocyte Esterase NEGATIVE (NEGATIVE) H. pylori IgG Antibody (NEG) Med Orders - Current: Current Medications Heparin Sodium (Porcine) (Heparin Sodium) 5,000 units SUBCUT Q8H [facility] Last Admin: 01/26/19 06:19 Dose: 5,000 units Hydromorphone HCl (Dilaudid) 2 mg IVPUSH Q2H PRN PRN Reason: Pain Last Admin: 01/26/19 06:16 Dose: 2 mg Sodium Chloride (Normal Saline) 1,000 mls @ 125 mls/hr IV ASDIRECTED [facility] Last Admin: 01/26/19 04:11 Dose: 125 mls/hr Ketorolac Tromethamine (Toradol) 30 mg IV Q6H PRN PRN Reason: Pain (moderate 4-6) Mirtazapine (Remeron) 45 mg PO BEDTIME PER[facility] Last Admin: 01/25/19 23:09 Dose: 45 mg Ondansetron HCl (Zofran) 4 mg IVPUSH Q6H PRN PRN Reason: Nausea/Vomiting Pantoprazole Sodium (Protonix Iv) 40 mg IV Q12HR [facility] Sodium Chloride (Saline Flush) 10 ml FLUSH ASDIRECTED PRN PRN Reason: Keep Vein Open Last Admin: 01/25/19 18:35 Dose: 10 ml Sodium Chloride (Saline Flush) 2.5 ml FLUSH ASDIRECTED PRN PRN Reason: Keep Vein Open Last Admin: 01/25/19 18:35 Dose: 2.5 ml Venlafaxine HCl (Effexor Xr) 375 mg PO DAILY [facility] Discontinued Medications Sodium Chloride (Normal Saline) 1,000 mls @ 999 mls/hr IV STAT ONE Stop: 01/25/19 19:17 Last Admin: 01/25/19 18:35 Dose: 999 mls/hr Sodium Chloride (Normal Saline) 1,000 mls @ 999 mls/hr IV STAT ONE Stop: 01/25/19 20:20 Last Admin: 01/25/19 20:31 Dose: 999 mls/hr Iopamidol (Isovue Multipack-370 (76%)) 100 ml IVPUSH ONETIME STA Stop: 01/25/19 19:43 Last Admin: 01/25/19 19:43 Dose: 100 ml Ketorolac Tromethamine (Toradol) 30 mg IVPUSH ONETIME ONE Stop: 01/25/19 18:18 Last Admin: 01/25/19 18:34 Dose: 30 mg Morphine Sulfate (Morphine) 2 mg IVPUSH ONETIME ONE Stop: 01/25/19 18:18 Last Admin: 01/25/19 18:35 Dose: 2 mg Morphine Sulfate (Morphine) 2 mg IVPUSH Q2H PRN PRN Reason: Pain (severe 7-10) Stop: 01/26/19 21:14 Last Admin: 01/25/19 22:09 Dose: 2 mg Non-Formulary Medication (Mirtazapine [Mirtazapine]) 45 mg PO DAILY [facility] Non-Formulary Medication (Venlafaxine) 375 mg PO BEDTIME [facility] Ondansetron HCl (Zofran) 4 mg IVPUSH ONETIME ONE Stop: 01/25/19 18:18 Last Admin: 01/25/19 18:36 Dose: 4 mg Pantoprazole Sodium (Protonix Iv) 80 mg IVPUSH .BOLUS ONE Stop: 01/25/19 18:24 Last Admin: 01/25/19 18:34 Dose: 80 mg - Exam Quality Assessment: DVT Prophylaxis General: Alert, Oriented, Cooperative, No Acute Distress HEENT: Pupils Equal, Pupils Reactive. No: Scleral Icterus Neck: Supple, Trachea Midline Lungs: Clear to Auscultation, Normal Respiratory Effort Cardiovascular: Regular Rate, Regular Rhythm, No Murmurs. No: Tachycardia GI/Abdominal Exam: Soft, No Distention, No Mass, Tender (right side), Abnormal Bowel Sounds (increased bowel sounds on right with some high pitched sounds. Minimal BS on left.). No: Guarding, Rigid, Rebound (Male) Exam: No Hernia Back Exam: Normal Inspection Extremities: Normal Inspection, Normal Range of Motion Skin: Warm, Dry, Intact Neurological: No New Focal Deficit Psy/Mental Status: Alert, Normal Affect, Normal Mood Consult PN Assessment/Plan (1) Abdominal pain SNOMED Code(s): 17789021 Code(s): R10.9 - UNSPECIFIED ABDOMINAL PAIN Priority: Medium Current Visit: Yes Qualifiers: Abdominal location: right lower quadrant Qualified Code(s): R10.31 - Right lower quadrant pain (2) Depression SNOMED Code(s): 54092601 Code(s): F32.9 - MAJOR DEPRESSIVE DISORDER, SINGLE EPISODE, UNSPECIFIED Priority: High Current Visit: Yes Qualifiers: Depression Type: dysthymia Qualified Code(s): F34.1 - Dysthymic disorder (3) Small bowel obstruction due to adhesions SNOMED Code(s): 712111537 Code(s): K56.50 - INTESTNL ADHESIONS, UNSP TO PARTIAL VERSUS COMPLETE OBST Priority: High Current Visit: Yes Problem List Initiated/Reviewed/Updated: Yes My Orders Last 24 Hours: My Active Orders 01/26/19 07:00 Abdomen 2V AP Flat Upright [CR] Routine Plan: Abdominal films pending. Will keep NPO until flatus and BMs.
[2019-01-26] MEDS: Venlafaxine 75 MG Cap.ER PO SCH (08:23)
[2019-01-26] MEDS: Pantoprazole 40 MG Vial IV SCH ×2 (08:24→22:04)
[2019-01-26] MEDS ORDERED: HYDROmorphone 1 MG/ML Syringe IVPUSH PRN (08:29)
[2019-01-26] MEDS ORDERED: Non-Formulary Medication 1 Each (Mirtazapine [Mirtazapine] 45 MG) PO SCH (09:00)
--- NOTE | 2019-01-26 12:28 | CR ---
EXAMINATION: Abdomen HISTORY: Partial small bowel obstruction COMPARISON: CT dated 01/25/2019 TECHNIQUE: AP and upright views FINDINGS: There is no free air under the diaphragm. There is a nonspecific bowel gas pattern noted without dilated loops of small bowel identified on today's examination. There is a moderate amount of stool and gas noted within the colon. There is contrast within the bladder from prior CT. Bladder configuration is stable in comparison to the CT. No organomegaly or abnormal calcifications. Visualized osseous structures appear normal. IMPRESSION: 1. Nonspecific bowel gas pattern without definitive evidence of obstruction at this time.
--- NOTE | 2019-01-26 17:54 | PCM.SN ---
- Free Text/Narrative Note: Patient is feeling much better this evening. No N/V. States his abdomen is sore but rates his pain a "0". Had had a BM and passed gas today. PE: Awake, alert oriented gentleman. Ht RRR. Lungs clear. Abdomen soft, nontender with active BS. Still slightly high pitched BS on the right side. IMPRESSION: SBO appears to have resolved. Think it is okay to start full liquids.
[2019-01-26] MEDS ORDERED: VENLAFAXINE PO SCH (21:00)
[2019-01-26] MEDS: Mirtazapine 15 MG Tab PO SCH (22:03)
[2019-01-27] MEDS: Sodium Chloride 0.9% 1,000 ML IV SCH (03:59)
[2019-01-27] MEDS: Heparin Sodium 5,000 Units/ML Vial SUBCUT SCH (06:30)
--- NOTE | 2019-01-27 08:22 | PCM.DCSUM1 ---
Discharge Summary - Hospital Course Diagnosis: Stroke: No - Discharge Data Discharge Date: 01/27/19 Discharge Disposition: Home, Self-Care 01 Condition: Fair - Discharge Diagnosis/Problem(s) (1) Small bowel obstruction due to adhesions SNOMED Code(s): 938333787 ICD Code: K56.50 - INTESTNL ADHESIONS, UNSP TO PARTIAL VERSUS COMPLETE OBST Status: Suspected Priority: High (2) Depression SNOMED Code(s): 24326103 ICD Code: F32.9 - MAJOR DEPRESSIVE DISORDER, SINGLE EPISODE, UNSPECIFIED Status: Chronic Priority: High Qualifiers: Depression Type: dysthymia Qualified Code(s): F34.1 - Dysthymic disorder (3) Abdominal pain SNOMED Code(s): 93184160 ICD Code: R10.9 - UNSPECIFIED ABDOMINAL PAIN Status: Resolved Priority: Medium Qualifiers: Abdominal location: right lower quadrant Qualified Code(s): R10.31 - Right lower quadrant pain - Patient Summary/Data Consults: Consultations 01/25/19 20:27 Consult to Physician [CONS] Stat Hospital Course: The patient is a 58-year-old gentleman who was admitted secondary to small bowel obstruction. The patient had abdominal x-ray this morning which is still consistent with small bowel obstruction and air fluid levels in the small intestine. The patient did have poorly controlled pain with the use of morphine and he was transitioned to Dilaudid 0.5 mg every 2 hours as needed for severe pain. He is also currently on nothing by mouth diet except for small sips of water with medications. The patient does have a complicated abdominal history due to surgery as an infant. He also says that his last small bowel obstruction with approximate 5 years ago. I will follow with the surgeon but I am concerned that if the patient does require surgery he might need to have surgery at a tertiary care center. I have advised the patient of this. He'll be continued on DVT prophylaxis with the use of heparin. I have also ordered repeat laboratory testings for the morning. The patient has been encouraged to ambulate. The patient had been consulted with surgery. The patient had continued to improve through the short course of hospitalization. By day of discharge the patient had rather large bowel movement and he had resolution of his pain. The patient had been tolerating his diet. He was recommended continue with his diet currently. The patient is also follow-up with his primary care physician. The patient is also to have activity as tolerated. He has been hemodynamically stable and he has been discharged from hospitalization with recommendations listed above. - Patient Instructions Diet: Heart Healthy Diet Activity: As Tolerated Driving: May Drive Today - Discharge Plan *PRESCRIPTION DRUG MONITORING PROGRAM REVIEWED*: No *COPY OF PRESCRIPTION DRUG MONITORING REPORT IN PATIENT PEDRO: No Prescriptions/Med Rec: Hydrocodone/Acetaminophen [Hydrocodon-Acetaminophen 5-325] 1 each PO Q6H PRN # 10 tablet PRN Reason: Abdominal Pain Home Medications: Home Meds Mirtazapine 45 mg PO DAILY 01/25/19 [History] Venlafaxine [Effexor XR] 375 mg PO ACBREAKFAST 01/25/19 [History] Hydrocodone/Acetaminophen [Hydrocodon-Acetaminophen 5-325] 1 each PO Q6H PRN # 10 tablet 01/27/19 [Rx] Oxygen Therapy Mode: Room Air Patient Handouts: Acetaminophen; Hydrocodone tablets or capsules, Small Bowel Obstruction, [id number] Referrals: Kelton Mcdowell MD [Resident] - 02/02/19 9:30 am - Discharge Summary/Plan Comment DC Time >30 min.: Yes - General Info Date of Service: 01/27/19 Admission Dx/Problem (Free Text: Partial SBO Subjective Update: The patient is doing much better today. Multiple large bowel movements. Functional Status: Reports: Pain Controlled - Review of Systems General: Reports: No Symptoms HEENT: Reports: No Symptoms Pulmonary: Reports: No Symptoms Cardiovascular: Reports: No Symptoms Gastrointestinal: Reports: No Symptoms Genitourinary: Reports: No Symptoms Musculoskeletal: Reports: No Symptoms Skin: Reports: No Symptoms Neurological: Reports: No Symptoms Psychiatric: Reports: No Symptoms - Patient Data Vitals - Most Recent: Last Vital Signs Temp 37.1 C 01/27/19 04:00 Pulse 91 01/27/19 04:00 Resp 16 01/27/19 04:00 BP 136/85 01/27/19 04:00 Pulse Ox 94 L 01/27/19 04:00 Weight - Most Recent: 95.254 kg I&O - Last 24 hours: Intake & Output 01/26/19 01/27/19 01/27/19 22:59 06:59 14:59 Intake Total 1601 2240 Output Total 550 2150 Balance 1051 90 Med Orders - Current: Current Medications Heparin Sodium (Porcine) (Heparin Sodium) 5,000 units SUBCUT Q8H [facility] Last Admin: 01/27/19 06:30 Dose: 5,000 units Hydromorphone HCl (Dilaudid) 0.5 mg IVPUSH Q2H PRN PRN Reason: Pain Last Admin: 01/26/19 12:11 Dose: 0.5 mg Sodium Chloride (Normal Saline) 1,000 mls @ 125 mls/hr IV ASDIRECTED [facility] Last Admin: 01/27/19 03:59 Dose: 125 mls/hr Ketorolac Tromethamine (Toradol) 30 mg IV Q6H PRN PRN Reason: Pain (moderate 4-6) Mirtazapine (Remeron) 45 mg PO BEDTIME [facility] Last Admin: 01/26/19 22:03 Dose: 45 mg Ondansetron HCl (Zofran) 4 mg IVPUSH Q6H PRN PRN Reason: Nausea/Vomiting Pantoprazole Sodium (Protonix Iv) 40 mg IV Q12HR [facility] Last Admin: 01/26/19 22:04 Dose: 40 mg Sodium Chloride (Saline Flush) 10 ml FLUSH ASDIRECTED PRN PRN Reason: Keep Vein Open Last Admin: 01/25/19 18:35 Dose: 10 ml Sodium Chloride (Saline Flush) 2.5 ml FLUSH ASDIRECTED PRN PRN Reason: Keep Vein Open Last Admin: 01/25/19 18:35 Dose: 2.5 ml Venlafaxine HCl (Effexor Xr) 375 mg PO DAILY [facility] Last Admin: 01/26/19 08:23 Dose: 375 mg Discontinued Medications Hydromorphone HCl (Dilaudid) 2 mg IVPUSH Q2H PRN PRN Reason: Pain Last Admin: 01/26/19 08:24 Dose: 2 mg Sodium Chloride (Normal Saline) 1,000 mls @ 999 mls/hr IV STAT ONE Stop: 01/25/19 19:17 Last Admin: 01/25/19 18:35 Dose: 999 mls/hr Sodium Chloride (Normal Saline) 1,000 mls @ 999 mls/hr IV STAT ONE Stop: 01/25/19 20:20 Last Admin: 01/25/19 20:31 Dose: 999 mls/hr Iopamidol (Isovue Multipack-370 (76%)) 100 ml IVPUSH ONETIME STA Stop: 01/25/19 19:43 Last Admin: 01/25/19 19:43 Dose: 100 ml Ketorolac Tromethamine (Toradol) 30 mg IVPUSH ONETIME ONE Stop: 01/25/19 18:18 Last Admin: 01/25/19 18:34 Dose: 30 mg Morphine Sulfate (Morphine) 2 mg IVPUSH ONETIME ONE Stop: 01/25/19 18:18 Last Admin: 01/25/19 18:35 Dose: 2 mg Morphine Sulfate (Morphine) 2 mg IVPUSH Q2H PRN PRN Reason: Pain (severe 7-10) Stop: 01/26/19 21:14 Last Admin: 01/25/19 22:09 Dose: 2 mg Non-Formulary Medication (Mirtazapine [Mirtazapine]) 45 mg PO DAILY PERICO Non-Formulary Medication (Venlafaxine) 375 mg PO BEDTIME PER[facility] Ondansetron HCl (Zofran) 4 mg IVPUSH ONETIME ONE Stop: 01/25/19 18:18 Last Admin: 01/25/19 18:36 Dose: 4 mg Pantoprazole Sodium (Protonix Iv) 80 mg IVPUSH .BOLUS ONE Stop: 01/25/19 18:24 Last Admin: 01/25/19 18:34 Dose: 80 mg - Exam Quality Assessment: Denies: Supplemental Oxygen General: Reports: Alert, Oriented HEENT: Reports: Pupils Equal, Pupils Reactive, EOMI, Mucous Membr. Moist/[place] Neck: Reports: Supple, Trachea Midline Lungs: Reports: Clear to Auscultation, Normal Respiratory Effort Cardiovascular: Reports: Regular Rate, Regular Rhythm, No Murmurs GI/Abdominal Exam: Normal Bowel Sounds, Soft, Non-Tender, No Distention. No: Guarding, Rigid, Rebound (Male) Exam: Deferred Rectal (Males) Exam: Deferred Back Exam: Reports: Normal Inspection, Full Range of Motion Extremities: Normal Inspection, Normal Range of Motion, Non-Tender, No Pedal Edema Skin: Reports: Warm, Dry, Intact Neurological: Reports: No New Focal Deficit Psy/Mental Status: Reports: Alert, Normal Affect, Normal Mood
[2019-01-27] MEDS: Venlafaxine 75 MG Cap.ER PO SCH (09:12)
[2019-01-27] MEDS ORDERED: Pantoprazole 40 MG in Sodium Chloride 0.9% 10 ML IV SCH (09:15)
[2019-01-27] MEDS: Pantoprazole 40 MG Vial IV SCH (10:13)
== END 2019-01-27 11:25 | disposition home or self-care (01) ==
LOC: MW.ED 17:58 → MW.MS 20:26
PROVIDERS: ADMIT Internal Medicine; ATTEND Internal Medicine
DX: K56.50 Intestinal adhesions [bands], unspecified as to partial versus complete obstruction (principal); F34.1 Dysthymic disorder; Z88.0 Allergy status to penicillin; Z79.899 Other long term (current) drug therapy; Z98.890 Other specified postprocedural states
CPT/HCPCS: 36415; 74019; 74177; 80048; 80053; 81003; 82150; 83690; 85025; 86677; 96361; 96372; 96374; 96375; 96376; 99285; A9270; C9113; G0378; J1170; J1644; J1885; J2270; J2405; J7040; J7050; Q9967; 99283